=== PATIENT | male | born 1970 | race Hispanic/Latino ===

== ENCOUNTER 2017-08-11 07:06 | Observation (INO) | payer BC ==
[2017-08-11] MEDS ORDERED: ECOTRIN PO ONE (08:08)
[2017-08-11 08:37] LABS: Basophils % (Auto) 0.6 % (0.0-1.8); Eosinophils # (Auto) 0.3 K/mm3 (0.0-0.4); Eosinophils % (Auto) 4.3 % (0.0-4.3); Hematocrit 45.8 % (35.5-45.6); Hemoglobin 15.7 gm/dl (11.8-15.2); Lymphocytes # (Auto) 1.8 K/mm3 (1.2-5.4); Lymphocytes % (Auto) 22.5 % (13.4-35.0); Mean Corpuscular HGB Conc 34 % (32-34); Mean Corpuscular Hemoglobin 31 pg (28-32); Mean Corpuscular Volume 90 fl (84-94); Monocytes # (Auto) 1.1 K/mm3 (0.0-0.8); Monocytes % (Auto) 13.7 % (0.0-7.3); Platelet Count 213 K/mm3 (140-440); Red Cell Distribution Width 13.3 % (13.2-15.2)
[2017-08-11 08:46] LABS: INR 0.95 (0.87-1.13)
[2017-08-11 08:47] LABS: Partial Thromboplastin Time 28.7 Sec. (24.2-36.6)
[2017-08-11] MEDS ORDERED: NACL 0.9% 500 ML 500 ML IV SCH (09:00)
[2017-08-11 09:14] LABS: BUN/Creatinine Ratio 16; Blood Urea Nitrogen 13 mg/dL (9-20); Calcium 8.8 mg/dL (8.4-10.2); Hemolysis Index 12
[2017-08-11] MEDS ORDERED: HEPARIN/NS 5000 UNIT/500ML(CATH LAB) 1,000 ML IR ONE (09:16)
[2017-08-11] MEDS ORDERED: NITROGLYCERIN SYRINGE 3 ML ONE (09:16)
[2017-08-11] MEDS ORDERED: CALAN ONE (09:16)
[2017-08-11] MEDS ORDERED: XYLOCAINE 2% INFILTRATI ONE (09:16)
[2017-08-11] MEDS ORDERED: VERSED ONE (09:17)
[2017-08-11] MEDS ORDERED: SUBLIMAZE ONE (09:17)
[2017-08-11] MEDS: HEPARIN 10,000 UNITS/10 ML ONE ×3 (09:41→10:17)
[2017-08-11] MEDS ORDERED: EFFIENT PO ONE (10:32)
[2017-08-11] MEDS ORDERED: ALUM-MAG HYDROX-SIMETH 200-200-20MG/5ML PO ONE (10:32)
--- NOTE | 2017-08-11 14:03 | Short Stay Summary ---
Short Stay Documentation Date of service: 08/11/17 - History H&P: obtained from office - Allergies and Medications Current Medications: Allergies MELITA Inhibitors Adverse Reaction (Verified 08/11/17 08:30) Shortness of Breath meloxicam Adverse Reaction (Verified 08/11/17 08:30) Hives Penicillins Adverse Reaction (Verified 08/11/17 08:30) Nausea Home Medications Medication Instructions Recorded Confirmed Last Taken Type Dicyclomine [Bentyl] 20 mg PO PRN PRN 08/11/17 08/11/17 08/06/17 History 20mg Nebivolol HCl [Bystolic] 5 mg PO HS 08/11/17 08/11/17 08/09/17 History 5mg amLODIPine [Norvasc] 5 mg PO DAILY 08/11/17 08/11/17 08/10/17 History 5mg Active Medications Amlodipine Besylate (Norvasc) 5 mg PO DAILY ROLAND Aspirin (Baby Aspirin) 81 mg PO QDAY ROLAND Atorvastatin Calcium (Lipitor) 40 mg PO QHS [facility] Sodium Chloride (Nacl 0.9% 500 Ml) 500 mls @ 50 mls/hr IV DIRECT ROLAND Stop: 08/11/17 18:59 Last Admin: 08/11/17 09:04 Dose: 50 mls/hr Prasugrel (Effient) 10 mg PO QDAY ROLAND - Physical exam General appearance: no acute distress Integumentary: no rash, no growths, no abnormal pigmentation HEENT: Atraumatic, PERRLA, EOMI Lungs: Clear to auscultation Heart: Regular rate, Normal S1, Normal S2 Gastrointestinal: normal Extremities: no ischemia, pulses intact, pulses symmetrical Neurological: Normal gait, Normal speech, Strength at 5/5 X4 ext - Brief post op/procedure progress note Date of procedure: 08/11/17 Pre-op diagnosis: abnormal stress test; chest pain Post-op diagnosis: other (CAD) Procedure: LHC with PCI - see dictated cath report Anesthesia: local Estimated blood loss: none Condition: stable - Hospital course Hospital course: Pt presented for scheduled LHC and subsequently underwent PCI of LAD. He remained clinically and hemodynamically stable throughout the procedure and recovery. He was admitted for observation overnight and is now medically stable for discharge home. - Disposition Condition at discharge: Stable Disposition: DC-01 TO HOME OR SELFCARE - Discharge Diagnoses (1) CAD (coronary artery disease) Status: Chronic (2) Stented coronary artery Status: Chronic (3) HTN (hypertension) Status: Chronic (4) Hyperlipidemia Status: Chronic (5) SHADY (obstructive sleep apnea) Status: Chronic (6) Statin intolerance Status: Chronic (7) History of TIA (transient ischemic attack) Status: Chronic Short Stay Discharge Plan Activity: advance as tolerated Diet: low fat, low cholesterol, low salt Wound: open to air, keep clean and dry, per your surgeon's advice Follow up with: SANIYA HUGHES MD [Other] - 7 Days ADALI LOPEZ MD [Staff Physician] - 7 Days ([place] office on 08/25/2017 @ 2: 45PM) Prescriptions: Prasugrel [Effient] 10 mg PO QDAY #30 tablet
[2017-08-11] MEDS ORDERED: ZOFRAN IV PRN (14:07)
[2017-08-11] MEDS ORDERED: TYLENOL PO PRN (14:07)
[2017-08-12 04:38] LABS: Basophils # (Auto) 0.1 K/mm3 (0.0-0.1); Basophils % (Auto) 0.6 % (0.0-1.8); Eosinophils # (Auto) 0.4 K/mm3 (0.0-0.4); Eosinophils % (Auto) 4.8 % (0.0-4.3); Hematocrit 46.8 % (35.5-45.6); Hemoglobin 16.3 gm/dl (11.8-15.2); Lymphocytes # (Auto) 1.9 K/mm3 (1.2-5.4); Lymphocytes % (Auto) 20.8 % (13.4-35.0); Mean Corpuscular HGB Conc 35 % (32-34); Mean Corpuscular Hemoglobin 32 pg (28-32); Mean Corpuscular Volume 91 fl (84-94); Monocytes # (Auto) 1.1 K/mm3 (0.0-0.8); Monocytes % (Auto) 12.2 % (0.0-7.3); Red Blood Count 5.17 M/mm3 (3.65-5.03); Red Cell Distribution Width 13.1 % (13.2-15.2)
[2017-08-12 04:58] LABS: Platelet Count 198 K/mm3 (140-440)
[2017-08-12 05:00] LABS: BUN/Creatinine Ratio 13; Blood Urea Nitrogen 9 mg/dL (9-20); Calcium 8.5 mg/dL (8.4-10.2); Hemolysis Index 10
[2017-08-12 05:02] LABS: Creatine Kinase MB 1.7 ng/mL (0.0-4.0)
[2017-08-12 08:00] VITALS: BP 135/72
--- NOTE | 2017-08-12 09:41 | XRay Report ---
AP CHEST : 08/12/17 08:33 CLINICAL: Status post PCI COMPARISON:None FINDINGS: Mild cardiomegaly. The lungs are slightly underexpanded but clear. No pneumothorax. Normal pulmonary vessels. No tubes or lines. The bones and soft tissues are unremarkable. IMPRESSION: Mild cardiomegaly but no CHF.
[2017-08-12] MEDS ORDERED: NORVASC PO SCH (10:00)
[2017-08-12] MEDS ORDERED: BABY ASPIRIN PO SCH (10:00)
[2017-08-12] MEDS ORDERED: EFFIENT PO SCH (10:00)
== END 2017-08-12 11:31 | disposition home or self-care (01) ==
LOC: CATHLABREC 07:06 → 4A 11:14
PROVIDERS: ADMIT Internal Medicine; ATTEND Internal Medicine
DX: I25.10 Atherosclerotic heart disease of native coronary artery without angina pectoris (principal); I10 Essential (primary) hypertension; E78.5 Hyperlipidemia, unspecified; R94.39 Abnormal result of other cardiovascular function study; T46.6X5A Adverse effect of antihyperlipidemic and antiarteriosclerotic drugs, initial encounter; G47.33 Obstructive sleep apnea (adult) (pediatric); Z86.73 Personal history of transient ischemic attack (TIA), and cerebral infarction without residual deficits
CPT/HCPCS: 36415; 71045; 80048; 82550; 82553; 84484; 85025; 85347; 85610; 85730; 92978; 93005; 93010; 93458; 93571; C1753; C1769; C1874; C1887; C1894; C9600; G0378; J1644; J2250; J3010; J7040; 92928; J0153; Q9967

== ENCOUNTER 2018-08-08 07:32 | Observation (INO) | payer BC ==
[2018-08-08] MEDS ORDERED: ECOTRIN PO ONE (08:30)
[2018-08-08 08:59] LABS: Basophils # (Auto) 0.1 K/mm3 (0.0-0.1); Basophils % (Auto) 1.6 % (0.0-1.8); Eosinophils # (Auto) 0.4 K/mm3 (0.0-0.4); Eosinophils % (Auto) 5.3 % (0.0-4.3); Hematocrit 45.9 % (35.5-45.6); Hemoglobin 16.2 gm/dl (11.8-15.2); Lymphocytes # (Auto) 1.9 K/mm3 (1.2-5.4); Lymphocytes % (Auto) 25.2 % (13.4-35.0); Mean Corpuscular HGB Conc 35 % (32-34); Mean Corpuscular Volume 91 fl (84-94); Monocytes # (Auto) 0.9 K/mm3 (0.0-0.8); Monocytes % (Auto) 12.3 % (0.0-7.3); Platelet Count 214 K/mm3 (140-440); Red Blood Count 5.04 M/mm3 (3.65-5.03); Red Cell Distribution Width 13.3 % (13.2-15.2)
[2018-08-08] MEDS: NACL 0.9% 500 ML 500 ML IV SCH ×2 (09:01→10:15)
[2018-08-08 09:10] LABS: INR 1.02 (0.87-1.13)
[2018-08-08 09:12] LABS: BUN/Creatinine Ratio 16; Blood Urea Nitrogen 14 mg/dL (9-20); Calcium 8.7 mg/dL (8.4-10.2); Hemolysis Index 5
[2018-08-08] MEDS ORDERED: XYLOCAINE 2% INFILTRATI ONE (09:44)
[2018-08-08] MEDS ORDERED: HEPARIN/NS 5000 UNIT/500ML(CATH LAB) 1,000 ML IR ONE (09:44)
[2018-08-08] MEDS ORDERED: SOLU-Medrol ONE (10:04)
[2018-08-08] MEDS ORDERED: BENADRYL ONE (10:04)
[2018-08-08] MEDS: NITROGLYCERIN SYRINGE 3 ML ONE ×3 (10:15→10:29)
[2018-08-08] MEDS: VERSED ONE ×2 (10:19→10:27)
[2018-08-08] MEDS: CALAN ONE ×4 (10:19→10:29)
[2018-08-08] MEDS: SUBLIMAZE ONE ×2 (10:19→10:27)
[2018-08-08] MEDS: HEPARIN 10,000 UNITS/10 ML ONE ×5 (10:19→10:45)
[2018-08-08] MEDS ORDERED: NACL 0.9% 500 ML 500 ML ONE (10:46)
[2018-08-08] MEDS ORDERED: EFFIENT PO ONE (11:07)
[2018-08-08] MEDS ORDERED: ALUM-MAG HYDROX-SIMETH 200-200-20MG/5ML ONE (11:07)
--- NOTE | 2018-08-08 11:15 | Short Stay Summary ---
Short Stay Documentation Date of service: 08/08/18 - History H&P: obtained from office - Allergies and Medications Current Medications: Allergies MELITA Inhibitors Adverse Reaction (Verified 08/11/17 08:30) Shortness of Breath meloxicam Adverse Reaction (Verified 08/11/17 08:30) Hives Penicillins Adverse Reaction (Verified 08/11/17 08:30) Nausea Home Medications Medication Instructions Recorded Confirmed Last Taken Type Aspirin [Aspirin BABY CHEW TAB] 81 mg PO QDAY tab.chew 08/11/17 08/08/18 08/07/18 Rx 81mg Dicyclomine [Bentyl] 20 mg PO PRN PRN 08/11/17 08/08/18 08/07/18 History 20mg Nebivolol HCl [Bystolic] 5 mg PO HS 08/11/17 08/08/18 08/07/18 History 5mg Prasugrel [Effient] 10 mg PO QDAY #30 tablet 08/11/17 08/08/18 08/07/18 Rx 10mg amLODIPine [Norvasc] 5 mg PO DAILY 08/11/17 08/08/18 08/07/18 History 5mg Active Medications Sodium Chloride (Nacl 0.9% 500 Ml) 500 mls @ 50 mls/hr IV DIRECT ROLAND Stop: 08/08/18 18:59 Last Admin: 08/08/18 10:15 Dose: 50 mls/hr Documented by: - Brief post op/procedure progress note Date of procedure: 08/08/18 Pre-op diagnosis: CAD Post-op diagnosis: same Procedure: LHC with PCI - see dictated cath report Anesthesia: local Estimated blood loss: none Condition: stable - Hospital course Hospital course: pt presented for elective LHC and subsequently underwent LHC with PCI - see dictated cath report. Pt was admitted for observation overnight. Pt has remained clinically and hemodynamically stable throughout admission and is medically stable for discharge home today. - Disposition Condition at discharge: Good Disposition: DC-01 TO HOME OR SELFCARE - Discharge Diagnoses (1) CAD (coronary artery disease) Status: Chronic (2) Stented coronary artery Status: Chronic (3) HTN (hypertension) Status: Chronic (4) Hyperlipidemia Status: Chronic (5) History of TIA (transient ischemic attack) Status: Chronic (6) SHADY (obstructive sleep apnea) Status: Chronic (7) Statin intolerance Status: Chronic Short Stay Discharge Plan Activity: advance as tolerated Diet: low fat, low cholesterol, low salt Wound: open to air, keep clean and dry, per your surgeon's advice Follow up with: SANIYA HUGHES NP [Primary Care Provider] - 7 Days ADALI LOPEZ MD [Staff Physician] - 7 Days ([place] office, 08/23/2018 @ 1:00PM) Forms: CardCath PCI D/C Instructions
--- NOTE | 2018-08-08 12:34 | Cardiac Catherization Report ---
HEART CATHETERIZATION REFERRING PHYSICIAN: Jefry Bateman MD INDICATIONS FOR PROCEDURE: The patient is a very pleasant 48-year-old gentleman, who had a PCI of proximal LAD last year; has aggressive coronary artery disease, STATIN INTOLERANT, INTOLERANT TO REPATHA OR PRALUENT; had a stress test about 6 month ago at [facility], this was unremarkable, but continued to have unstable angina, very significant and typical symptoms. He is on antianginal therapy. We discussed the options. He would like to proceed with heart catheterization. Risks, benefits, alternatives discussed at length prior to obtaining informed consent. PROCEDURE IN DETAIL: The patient was brought to catheterization lab in a postabsorptive state, prepped and draped in sterile fashion. Rafael's test in right hand was normal. A 2 mL of 2% lidocaine used to anesthetize the right wrist and a 6-Argentine hydrophilic sheath used to cannulate the right radial artery via modified Seldinger technique. All exchanges performed to exchange a J-tip guidewire. JL3.5 catheter used to engage the left main. No dampening or ventricularization. Cineangiography performed in multiple projections. JR4 catheter used to cross the aortic valve under fluoroscopic guidance. Left ventriculography performed in 30 CANDELARIA and 30 EAN projections via hand injections, catheter flushed. Manual pullback performed with continuous pressure monitoring. Catheter used to engage the right coronary. No dampening or ventricularization. Cineangiography performed in multiple projections. DATA: Aortic pressure is 130/70, LV pressure is 130, LVP of 15 mmHg. Left ventriculography reveals normal systolic performance with estimated ejection fraction of 55-60%. No evidence of aortic stenosis. The patient remained in normal sinus rhythm throughout the procedure. CORONARY ANATOMY: This is a right dominant system. There are separate ostia of the left circumflex and LAD. Left circumflex is moderate-sized vessel, courses AV groove. No significant disease, scattered luminal irregularities. LAD is a small to moderate size vessel, courses anterior intergroove, wraps around the apex. Stent in the mid LAD is widely patent. No other obstructive disease identified. There is a very small first diagonal with a 40-50% stenosis proximally, would manage this medically anyway. This is a very small vessel. Right coronary is a moderate sized vessel, courses AV groove, distally bifurcates in the posterior and posterolateral branch. There appears to be an ulcerated 80-90% stenosis proximally. This is new from the last catheterization last year. At this point, decided to interrogate this vessel further. We decided to perform physiologic assessment. Additional heparin was given. Abnormal ACT is confirmed. Used a pressure wire. IFR and FFR obtained. IFR christopher is approximately 0.83. This deemed this lesion physiologically significant given the unstable angina. Last presentation, we proceeded with PCI, direct stented with Alexander 2.75 x 12. Excellent angiographic result at 12 KISHA for 30 seconds. Next, intravascular ultrasound performed, reveals a well apposed and well expanded stent. No complications, no dissection on IVUS. I directly supervised the administration of moderate sedation from 10:27-11:15 with fentanyl and Versed. There were no immediate complications identified. The patient tolerated the procedure well. CONCLUSIONS: 1. Severe single vessel coronary artery disease with an ulcerated 80-90% proximal right coronary stenosis in the milieu of unstable angina. A successful IFR-directed, IVUS-guided PCI of proximal RCA with placement of drug-eluting stent (Alexander 2.75 x 12) with excellent final angiographic and ultrasonographic result. 2. Patent mid LAD stent. 3. Normal left ventricular function, estimated ejection fraction of 55-60%. 4. No evidence of aortic stenosis. 5. Normal LVEDP. The patient tolerated the procedure well with no complication, chest pain free, clinically stable. Effient, aspirin, Praluent. Again, he is STATIN INTOLERANT. Aggressive risk factor modification. Recommend screening for first-degree relatives given aggressive disease pattern. Long discussion regarding primary and secondary prevention measures. Standard radial care. Results of procedure discussed at length with the patient and family. All questions and concerns were addressed. JOB# [id number] CHRISTINE/DINH BASURTO
[2018-08-09 05:48] LABS: Hematocrit 47.9 % (35.5-45.6); Hemoglobin 16.4 gm/dl (11.8-15.2); Mean Corpuscular HGB Conc 34 % (32-34); Mean Corpuscular Volume 92 fl (84-94); Platelet Count 244 K/mm3 (140-440); Red Cell Distribution Width 13.7 % (13.2-15.2)
[2018-08-09 06:17] LABS: Creatine Kinase MB 1.9 ng/mL (0.0-4.0)
[2018-08-09 06:21] LABS: BUN/Creatinine Ratio 15; Blood Urea Nitrogen 12 mg/dL (9-20); Calcium 8.7 mg/dL (8.4-10.2); Hemolysis Index 20
[2018-08-09 08:00] VITALS: BP 117/68
--- NOTE | 2018-08-09 08:36 | XRay Report ---
AP CHEST: HISTORY: Post PCI AP view of the chest demonstrates a normal mediastinal and cardiac contour with clear lungs and normal bony and soft tissue structures. No change since 08/12/17. IMPRESSION: Unremarkable AP chest.
[2018-08-09 08:43] LABS: Basophils % (Manual) 0 % (0.0-1.8); Eosinophils % (Manual) 0 % (0.0-4.3); Platelet Estimate Consistent w Auto; RBC Morphology Normal; Total Cells Counted 100
[2018-08-09] MEDS ORDERED: EFFIENT PO SCH (10:00)
[2018-08-09] MEDS ORDERED: BABY ASPIRIN PO SCH (10:00)
== END 2018-08-09 11:30 | disposition home or self-care (01) ==
LOC: CATHLABREC 07:32 → 4A 11:16
PROVIDERS: ADMIT Internal Medicine; ATTEND Internal Medicine
DX: I25.119 Atherosclerotic heart disease of native coronary artery with unspecified angina pectoris (principal); I10 Essential (primary) hypertension; G47.33 Obstructive sleep apnea (adult) (pediatric); T46.6X5A Adverse effect of antihyperlipidemic and antiarteriosclerotic drugs, initial encounter; E78.2 Mixed hyperlipidemia; R94.39 Abnormal result of other cardiovascular function study; R93.1 Abnormal findings on diagnostic imaging of heart and coronary circulation; R00.2 Palpitations; M79.89 Other specified soft tissue disorders; Z86.73 Personal history of transient ischemic attack (TIA), and cerebral infarction without residual deficits; Z87.891 Personal history of nicotine dependence; Z98.61 Coronary angioplasty status; Z79.82 Long term (current) use of aspirin; Z79.899 Other long term (current) drug therapy; Z88.8 Allergy status to other drugs, medicaments and biological substances; Z88.0 Allergy status to penicillin
CPT/HCPCS: 36415; 71045; 80048; 82550; 82553; 84484; 85007; 85025; 85347; 85610; 85730; 92978; 93005; 93010; 93458; 93567; 93571; C1753; C1769; C1874; C1887; C1894; C9600; G0378; J0153; J1200; J1644; J2250; J2930; J3010; J7040; 92928; Q9967